=== PATIENT | male | born 1950 | race Caucasian/White ===

== ENCOUNTER 2024-12-13 14:07 | Outpatient (CLI) | payer MEDICARE, SELFPAY ==
--- NOTE | ~2024-12-13 | XR_ITS ---
XR hand LT min 3V Ordering provider: Harika Viera MD History: . R22.32 - Localized swelling, mass and lump, left upper limb . Comparison: None. FINDINGS: BONES: No acute fracture or dislocation. JOINT SPACES: A narrowing of the proximal and distal interphalangeal dens. Osteoarthritic changes of the first carpometacarpal joint. SOFT TISSUES: Unremarkable. IMPRESSION: No acute osseous abnormality left hand. Polyarticular osteoarthritic changes. Reviewed, dictated and finalized at location A. [facility]
== END 2024-12-13 14:08 | disposition home or self-care (01) ==
PROVIDERS: PCP Physician Assistant; Visit Provider Plastic Surgery
DX: M19.042 Primary osteoarthritis, left hand (principal)
CPT/HCPCS: 73130